=== PATIENT | female | born 1950 | race Two or more races ===

== ENCOUNTER 2020-10-20 16:45 | Inpatient (IN) | payer OTHER ==
[~2020-10-20] VITALS: Ht 162.6 cm; Wt 74.8 kg
[2020-10-28] MEDS ORDERED: DECADRON6 MG PO (09:07)
[2020-10-28] MEDS ORDERED: TUSSIN100 MG/51 PO (09:08)
== END 2020-10-28 14:09 | disposition home or self-care (01) | DRG 177 ==
LOC: ER 16:45 → MEDJ 23:04
PROVIDERS: ADMIT Internal Medicine; ATTEND Internal Medicine
PROC: BW24ZZZ Computerized Tomography (CT Scan) of Chest and Abdomen (ICD-10-PCS; principal; 2020-10-20)
PROC: XW033E5 Introduction of Remdesivir Anti-infective into Peripheral Vein, Percutaneous Approach, New Technology Group 5 (ICD-10-PCS; 2020-10-21)
DX: U07.1 COVID-19 (principal); J12.89 Other viral pneumonia; R09.02 Hypoxemia; E11.9 Type 2 diabetes mellitus without complications; Z79.4 Long term (current) use of insulin; C01 Malignant neoplasm of base of tongue; I10 Essential (primary) hypertension; C73 Malignant neoplasm of thyroid gland; Z92.21 Personal history of antineoplastic chemotherapy